=== PATIENT | male | born 1955 | race Hispanic/Latino ===

== ENCOUNTER → 2023-05-23 | Outpatient (CLI) | payer OTHER | END | disposition home or self-care (01) | LOC: OIH 09:28 | PROVIDERS: ATTEND Internal Medicine Cardiovascular Disease | DX: Z13.6 Encounter for screening for cardiovascular disorders (principal); R00.2 Palpitations | CPT/HCPCS: 75571 ==

== ENCOUNTER → 2023-08-13 | Outpatient (CLI) | payer OTHER ==
[2023-08-13 12:30] LABS: CHOLESTEROL 230 mg/dL (<200); HDL CHOLESTEROL 58 mg/dL (29-71); LDL DIRECT 151 mg/dL (0-99); TRIGLYCERIDES 118 mg/dL (30-200)
== END | disposition home or self-care (01) ==
LOC: LAB 08:46
PROVIDERS: ATTEND Internal Medicine Cardiovascular Disease
DX: E78.5 Hyperlipidemia, unspecified (principal)
CPT/HCPCS: 36415; 80061

== ENCOUNTER → 2024-10-07 | Outpatient (CLI) | payer OTHER, MEDICARE ==
--- NOTE | 2024-10-07 11:24 | HMCIMG ---
LEFT HUMERUS RADIOGRAPHS - 2 VIEWS INDICATION: Left upper extremity lump COMPARISON: None FINDINGS: AP and lateral views. No fracture or dislocation identified. No intrinsic osseous abnormality noted. No radiopaque foreign body noted. IMPRESSION: No radiographic evidence for any left humerus abnormality. Sonographic imaging of the left arm "lump" is recommended for further evaluation.
== END | disposition home or self-care (01) ==
LOC: RAH 10:19
PROVIDERS: ATTEND Surgery
DX: R22.32 Localized swelling, mass and lump, left upper limb (principal)
CPT/HCPCS: 73060